=== PATIENT | male | born 1950 | race Caucasian/White ===

== ENCOUNTER 2020-08-11 13:58 | Inpatient (IN) | payer MEDICAID, MEDICARE ==
[~2020-08-11] VITALS: Ht 180.3 cm; Wt 96.3 kg
[2020-08-11] MEDS ORDERED: ASPIRIN 81 MG TABLET CHEW PO ONE (14:30)
[2020-08-11] MEDS ORDERED: SODIUM CHLORIDE FLUSH 10ML SYR IVF ONE (14:30)
[2020-08-11 14:51] LABS: BASOPHILS % (AUTO) 0 % (0-1); EOSINOPHILS % (AUTO) 4 % (1-7); LYMPHOCYTES % (AUTO) 8 % (22-44); MEAN CORPUSCULAR HEMOGLOBIN 30.6 pg (27.5-34.5); MEAN CORPUSCULAR HGB CONC 34.3 g/dL (33.2-36.2); MEAN PLATELET VOLUME 7.4 fL (7.4-10.4); MONOCYTES % (AUTO) 10 % (2-9); NEUTROPHILS % (AUTO) 79 % (42-75); PLATELET COUNT 178 x10^3/uL (130-400); RED BLOOD COUNT 4.17 x10^6/uL (4.38-5.82); RED CELL DISTRIBUTION WIDTH 13.9 % (9.4-14.8)
[2020-08-11] MEDS ORDERED: ASPIRIN 81 MG TABLET CHEW ONE (14:52)
[2020-08-11 15:01] LABS: TROPONIN I < 0.015 ng/mL (0.000-0.045)
[2020-08-11 15:46] LABS: ANION GAP 10 mmol/L (5-15); CHLORIDE 107 mmol/L (98-107); CREATININE 0.98 mg/dL (0.7-1.3)
[2020-08-11] MEDS ORDERED: AMPICILLIN/SULBACTAM 3 GM in SODIUM CHLORIDE 0.9% 100 ML IV ONE (16:00)
[2020-08-11] MEDS ORDERED: MAALOX/HYOSCYAMINE/LIDOCAINE 45 ML BTL PO ONE (16:30)
--- NOTE | 2020-08-11 16:30 | NUR ---
Code 250. Pt at outpt wound clinic for R leg wound that he's "had for 3 months and nobody can fix." Hx of DM. Pt taking Eliquis for hx of DVTs, denies hx of PEs. Pt reports significant SOB today at wound clinic, worse than normal. Pt's RA sat >92% but resp rate >30. Pt awake and alert, but poor historian.
--- NOTE | 2020-08-11 16:58 | NUR ---
Pt to imaging.
[2020-08-11 17:17] LABS: ALBUMIN 2.8 g/dL (3.4-5.0); BILIRUBIN, DIRECT 4.8 mg/dL (0.1-0.2)
[2020-08-11 17:19] LABS: BILIRUBIN,INDIRECT 1.1 mg/dL (0.0-2.0); BILIRUBIN,TOTAL 5.9 mg/dL (0.2-1.0); TOTAL PROTEIN 6.4 g/dL (6.4-8.2)
[2020-08-11] MEDS ORDERED: MAALOX/HYOSCYAMINE/LIDOCAINE 45 ML BTL ONE (17:42)
[2020-08-11] MEDS ORDERED: HYDROmorphone 2 MG/ML, 1ML ONE (17:42)
--- NOTE | 2020-08-11 17:48 | NUR ---
Multiple RNS at bedside working to obtain IV access since 1644 Addendum: 08/11/20 at 1754 by PAO Multiple RNS at bedside working to obtain IV access since 1614
[2020-08-11] MEDS ORDERED: HYDROmorphone 1 MG/ML, 1ML INJ IM ONE (18:00)
[2020-08-11] MEDS ORDERED: OMNIPAQUE 350 MG/ML, 100ML BOTTLE ONE (18:25)
[2020-08-11] MEDS ORDERED: SODIUM CHLORIDE 0.9% 1,000ML IVBOLUS ONE (19:00)
--- NOTE | 2020-08-11 19:08 | NUR ---
pt back in bed from walking to bathroom with steady gait. nadn with exception to breathing faster than normal. pt telling jokes to this nurse in happy mood. bed in low position, trails engaged. call light on lap tm
--- NOTE | 2020-08-11 19:08 | NUR ---
Fluids started as pt is being worked up for SOB sepsis versus CHF versus PE. Pt's BP noted to be trending down most recent 94/66 after abx. MD Pedroza who has assumed care notified of this and BNP, 500cc fluid bolus ordered and started. Pt ambulatory to bathroom with steady gait for UA. Bedside report to KRISTINA Huertas, to assume full care.
[2020-08-11] MEDS ORDERED: SULF1TAB23 PO (20:13)
[2020-08-11] MEDS ORDERED: SEMA0.25 INJ (20:13)
[2020-08-11] MEDS ORDERED: INSU100V13 INJ (20:13)
[2020-08-11] MEDS ORDERED: DOXY100C2 PO (20:13)
[2020-08-11] MEDS ORDERED: OLAN10VI2 PO (20:13)
[2020-08-11] MEDS ORDERED: HYDR-826 PO (20:13)
[2020-08-11] MEDS ORDERED: METF500T17 PO (20:13)
[2020-08-11] MEDS ORDERED: AMOX CLAV (20:13)
[2020-08-11] MEDS ORDERED: HYDR-3237 PO (20:13)
[2020-08-11] MEDS ORDERED: BUPR100T11 PO (20:13)
[2020-08-11] MEDS ORDERED: GLIP5TAB10 PO (20:15)
[2020-08-11] MEDS ORDERED: [UNRECOGNIZED DRUG - SUPPLY] (20:15)
[2020-08-11] MEDS ORDERED: RIVA20TA PO (20:15)
--- NOTE | 2020-08-11 20:21 | NUR ---
LATE ENTRY. BEDSIDE REPORT FROM LUZ ACEVEDO AT [facility]IFT [facility].
--- NOTE | 2020-08-11 20:58 | NUR ---
Patient is resting comfortably in bed. Bed in lowest, rails engaged, call light on lap. Vital Signs within normal limits. PT GIVEN ICE FOR DRY MOUTH. WCTM.
[2020-08-11] MEDS ORDERED: HEPARIN 5,000 UNITS/ML, 1ML SQ SCH (21:00)
[2020-08-11] MEDS ORDERED: DOCUSATE 100 MG CAPSULE PO PRN (21:00)
[2020-08-11] MEDS ORDERED: LIDODERM 5% PATCH TD PRN (21:25)
[2020-08-11] MEDS ORDERED: HYDROcodone/APAP 5/325 TABLET ONE (21:25)
[2020-08-11] MEDS ORDERED: OLANZAPINE 5 MG TABLET ONE (21:25)
[2020-08-11] MEDS ORDERED: HEPARIN 5,000 UNITS/ML, 1ML ONE (21:25)
[2020-08-11] MEDS ORDERED: MELATONIN 5 MG TABLET PO PRN (21:26)
[2020-08-11 21:28] LABS: TROPONIN I < 0.015 ng/mL (0.000-0.045)
[2020-08-11] MEDS: OLANZAPINE 5 MG TABLET PO SCH (21:28)
[2020-08-11] MEDS: HYDROcodone/APAP 5/325 TABLET PO SCH (21:29)
--- NOTE | 2020-08-11 22:05 | NUR ---
GAVE REPORT TO TAMI ACEVEDO.
[2020-08-11 22:36] VITALS: BP 125/73
[2020-08-12] MEDS: FUROSEMIDE 20 MG/2 ML IV SCH ×3 (01:19→16:36)
[2020-08-12 01:24] LABS: MICROSCOPIC INDICATED
[2020-08-12 01:56] VITALS: BP 128/73
[2020-08-12] MEDS: AMPICILLIN/SULBACTAM 3 GM in SODIUM CHLORIDE 0.9% 100 ML IV SCH ×3 (02:12→17:43)
[2020-08-12 03:15] LABS: BASOPHILS % (AUTO) 0 % (0-1); EOSINOPHILS % (AUTO) 7 % (1-7); LYMPHOCYTES % (AUTO) 11 % (22-44); MEAN CORPUSCULAR HEMOGLOBIN 30.7 pg (27.5-34.5); MEAN CORPUSCULAR HGB CONC 34.8 g/dL (33.2-36.2); MEAN PLATELET VOLUME 7.1 fL (7.4-10.4); MONOCYTES % (AUTO) 9 % (2-9); NEUTROPHILS % (AUTO) 72 % (42-75); PLATELET COUNT 159 x10^3/uL (130-400); RED BLOOD COUNT 4.04 x10^6/uL (4.38-5.82)
[2020-08-12 03:31] LABS: CHLORIDE 105 mmol/L (98-107); TROPONIN I < 0.015 ng/mL (0.000-0.045)
[2020-08-12 03:32] LABS: ALANINE AMINOTRANSFERASE 434 U/L (12-78); ALBUMIN 2.5 g/dL (3.4-5.0); ANION GAP 10 mmol/L (5-15); CALCIUM 8.3 mg/dL (8.5-10.1); CREATININE 0.73 mg/dL (0.7-1.3)
[2020-08-12 03:42] LABS: ALKALINE PHOSPHATASE 702 U/L (45-117); BILIRUBIN,TOTAL 5.8 mg/dL (0.2-1.0); TOTAL PROTEIN 6.2 g/dL (6.4-8.2)
[2020-08-12] MEDS: HYDROcodone/APAP 5/325 TABLET PO SCH ×4 (05:55→20:40)
[2020-08-12 07:02] VITALS: BP 113/71
[2020-08-12] MEDS ORDERED: GADOTERATE 10 MMOL/20ML SYR ONE (08:51)
[2020-08-12] MEDS: RIVAROXABAN 20 MG TABLET PO SCH (10:43)
[2020-08-12] MEDS: BUPROPION 100 MG TABLET PO SCH (10:50)
[2020-08-12 12:32] VITALS: BP 107/68
[2020-08-12 19:34] VITALS: BP 118/73
[2020-08-12] MEDS: OLANZAPINE 5 MG TABLET PO SCH (20:40)
[2020-08-13 01:27] VITALS: BP 119/75
[2020-08-13] MEDS: AMPICILLIN/SULBACTAM 3 GM in SODIUM CHLORIDE 0.9% 100 ML IV SCH ×2 (02:47→10:19)
[2020-08-13] MEDS: HYDROcodone/APAP 5/325 TABLET PO SCH ×2 (04:42→10:19)
[2020-08-13] MEDS: FUROSEMIDE 20 MG/2 ML IV SCH (06:27)
[2020-08-13 07:09] VITALS: BP 147/83
[2020-08-13] MEDS ORDERED: AMOX1TAB64 PO (08:49)
[2020-08-13] MEDS ORDERED: FURO-93 PO (08:50)
[2020-08-13] MEDS ORDERED: POTA20TA6 PO (08:51)
[2020-08-13 09:19] LABS: ANION GAP 12 mmol/L (5-15); CALCIUM 9.2 mg/dL (8.5-10.1); CHLORIDE 104 mmol/L (98-107); CREATININE 0.79 mg/dL (0.7-1.3)
[2020-08-13 09:20] LABS: ALANINE AMINOTRANSFERASE 368 U/L (12-78); ALBUMIN 2.8 g/dL (3.4-5.0)
[2020-08-13 09:22] LABS: ALKALINE PHOSPHATASE 864 U/L (45-117); BILIRUBIN,TOTAL 2.8 mg/dL (0.2-1.0); TOTAL PROTEIN 7.1 g/dL (6.4-8.2)
[2020-08-13] MEDS: RIVAROXABAN 20 MG TABLET PO SCH (09:25)
[2020-08-13] MEDS: OLANZAPINE 5 MG TABLET PO SCH (09:25)
[2020-08-13] MEDS: BUPROPION 100 MG TABLET PO SCH (09:25)
== END 2020-08-13 12:20 | disposition home or self-care (01) | DRG 602 ==
LOC: ED 21:22 → EDIP 21:37 → 5SO 22:30 → DCLOUNGE 08-13 12:14
PROVIDERS: ADMIT Internal Medicine; ATTEND Hospitalist
DX: L03.115 Cellulitis of right lower limb (principal); J96.01 Acute respiratory failure with hypoxia; K85.90 Acute pancreatitis without necrosis or infection, unspecified; I50.31 Acute diastolic (congestive) heart failure; F33.9 Major depressive disorder, recurrent, unspecified; J81.1 Chronic pulmonary edema; J90 Pleural effusion, not elsewhere classified; J98.11 Atelectasis; K81.0 Acute cholecystitis; K76.1 Chronic passive congestion of liver; D64.9 Anemia, unspecified; E11.65 Type 2 diabetes mellitus with hyperglycemia; F41.9 Anxiety disorder, unspecified; L03.116 Cellulitis of left lower limb; Z86.718 Personal history of other venous thrombosis and embolism; Z79.01 Long term (current) use of anticoagulants; Z91.5 Personal history of self-harm
CPT/HCPCS: 36415; 71045; 71275; 74177; 80048; 80053; 80074; 80076; 81001; 83605; 83690; 83735; 83880; 84100; 84443; 84484; 85025; 85379; 87040; 93005; 93306; 93356; 96374; G0378; J0295; J1170; J1644; Q9967; A9575; J1940; J7030; Q0177

== ENCOUNTER 2020-08-16 00:16 | Emergency (ER) | payer MEDICAID ==
[~2020-08-16] VITALS: Ht 180.3 cm; Wt 93.2 kg
[~2020-08-16 00:16] MED LIST: AMOX CLAV; AMOX1TAB64 PO; BUPR100T11 PO; DOXY100C2 PO; FURO-93 PO; GLIP5TAB10 PO; HYDR-3237 PO; HYDR-826 PO; INSU100V13 INJ; METF500T17 PO; OLAN10VI2 PO; POTA20TA6 PO; RIVA20TA PO; SEMA0.25 INJ; SULF1TAB23 PO; [UNRECOGNIZED DRUG - SUPPLY]
[2020-08-16] MEDS ORDERED: ACETAMINOPHEN 500 MG TABLET PO ONE (00:30)
[2020-08-16] MEDS ORDERED: ACETAMINOPHEN 500 MG TABLET ONE (00:32)
[2020-08-16 00:42] LABS: BASOPHILS % (AUTO) 1 % (0-1); EOSINOPHILS % (AUTO) 6 % (1-7); LYMPHOCYTES % (AUTO) 17 % (22-44); MEAN CORPUSCULAR HEMOGLOBIN 30.4 pg (27.5-34.5); MEAN CORPUSCULAR HGB CONC 34.4 g/dL (33.2-36.2); MEAN PLATELET VOLUME 7.3 fL (7.4-10.4); MONOCYTES % (AUTO) 13 % (2-9); NEUTROPHILS % (AUTO) 64 % (42-75); PLATELET COUNT 247 x10^3/uL (130-400); RED BLOOD COUNT 4.41 x10^6/uL (4.38-5.82); RED CELL DISTRIBUTION WIDTH 14.6 % (9.4-14.8)
[2020-08-16 00:55] LABS: ALBUMIN 2.8 g/dL (3.4-5.0); ANION GAP 10 mmol/L (5-15); CALCIUM 9.6 mg/dL (8.5-10.1); CHLORIDE 102 mmol/L (98-107); CREATININE 0.92 mg/dL (0.7-1.3)
[2020-08-16 02:47] VITALS: BP 142/82
== END 2020-08-16 02:49 | disposition home or self-care (01) ==
LOC: ED 01:30
DX: M79.661 Pain in right lower leg (principal); L03.115 Cellulitis of right lower limb; E11.9 Type 2 diabetes mellitus without complications; Z86.718 Personal history of other venous thrombosis and embolism
CPT/HCPCS: 36415; 80048; 82040; 85025; 86140; 99284

== ENCOUNTER 2020-08-18 23:28 | Emergency (ER) | payer MEDICAID ==
[2020-08-18 23:33] VITALS: BP 131/60
--- NOTE | 2020-08-18 23:42 | NUR ---
BI LAT FOOT PAIN WAS SEEN HERE A WEEK AGO FOR SAME
[2020-08-18] MEDS ORDERED: HYDROcodone/APAP 5/325 TABLET ONE (23:49)
[2020-08-19] MEDS ORDERED: HYDROcodone/APAP 5/325 TABLET PO ONE
[2020-08-19 00:13] LABS: BASOPHILS % (AUTO) 0 % (0-1); EOSINOPHILS % (AUTO) 0 % (1-7); LYMPHOCYTES % (AUTO) 20 % (22-44); MEAN CORPUSCULAR HEMOGLOBIN 30.3 pg (27.5-34.5); MEAN CORPUSCULAR HGB CONC 34.1 g/dL (33.2-36.2); MEAN PLATELET VOLUME 7.4 fL (7.4-10.4); MONOCYTES % (AUTO) 13 % (2-9); NEUTROPHILS % (AUTO) 67 % (42-75); PLATELET COUNT 310 x10^3/uL (130-400); RED BLOOD COUNT 4.08 x10^6/uL (4.38-5.82); RED CELL DISTRIBUTION WIDTH 14.2 % (9.4-14.8)
[2020-08-19 00:14] LABS: HCT (SEDRATE) 36.3 % (39.2-51.8)
[2020-08-19 00:20] LABS: ALBUMIN 2.8 g/dL (3.4-5.0); ANION GAP 7 mmol/L (5-15); CHLORIDE 103 mmol/L (98-107); CREATININE 0.95 mg/dL (0.7-1.3)
--- NOTE | 2020-08-19 00:50 | NUR ---
REPORT FROM KRISTINA GARY
[2020-08-19] MEDS ORDERED: VANCOMYCIN PER PHARMACY MC PRN (02:00)
[2020-08-19] MEDS ORDERED: CEFTRIAXONE 1,000 MG in DEXTROSE 5% 50 ML IVPB ONE (02:00)
== END 2020-08-19 02:11 | disposition home or self-care (01) ==
LOC: ED 23:39
DX: M79.662 Pain in left lower leg (principal); M79.661 Pain in right lower leg; E11.40 Type 2 diabetes mellitus with diabetic neuropathy, unspecified; Z86.718 Personal history of other venous thrombosis and embolism
CPT/HCPCS: 36415; 80048; 82040; 83605; 85025; 85651; 86140; 99283

== ENCOUNTER 2020-08-25 01:01 | Emergency (ER) | payer MEDICARE, MEDICAID ==
[~2020-08-25] VITALS: Ht 180.3 cm; Wt 95.0 kg
[2020-08-25 01:02] VITALS: BP 132/77
--- NOTE | 2020-08-25 01:43 | NUR ---
PT PRESENTS TO ER FOR RIGHT ANKLE PAIN, PT STATES HE HAS HAD A WOUND ON IT FOR 4 MONTHS, PTS RIGHT ANKLE IS RED, WARM TO THE TOUCH AND VERY DRY AND FLAKEY, PT STATES HE HAS AN APPOINTMENT AT [facility] TODAY AT 9AM BUT COULDNT TAKE THE PAIN AND WANTED TO CHECK INTO THE ER FOR IT, PT IS A DIABETIC AND STATES HE IS COMPLIANT WITH TREATMENT
[2020-08-25] MEDS ORDERED: HYDROcodone/APAP 5/325 TABLET PO ONE (02:30)
[2020-08-25] MEDS ORDERED: HYDROcodone/APAP 5/325 TABLET ONE (02:35)
--- NOTE | 2020-08-25 02:46 | NUR ---
PT GIVEN ORAL PAIN MEDICATION AND TOLD TO KEEP HIS WOUND APPOINTMENT IN THE MORNING, PT AGREES TO POC, PT STATED HE WAS GOING TO USE [facility] TO ARRANGE FOR TRANSPORTATION
== END 2020-08-25 02:58 | disposition home or self-care (01) ==
LOC: ED 02:30
DX: M79.661 Pain in right lower leg (principal); E11.40 Type 2 diabetes mellitus with diabetic neuropathy, unspecified; T81.89XA Other complications of procedures, not elsewhere classified, initial encounter; Z86.718 Personal history of other venous thrombosis and embolism
CPT/HCPCS: 99283

== ENCOUNTER 2020-08-25 08:42 | Outpatient (CLI) | payer MEDICARE, MEDICAID | END 2020-08-25 23:59 | disposition home or self-care (01) | LOC: WOUND 08:42 | PROVIDERS: ATTEND Internal Medicine | DX: E11.621 Type 2 diabetes mellitus with foot ulcer (principal); L97.411 Non-pressure chronic ulcer of right heel and midfoot limited to breakdown of skin; L97.511 Non-pressure chronic ulcer of other part of right foot limited to breakdown of skin; E11.622 Type 2 diabetes mellitus with other skin ulcer; L97.311 Non-pressure chronic ulcer of right ankle limited to breakdown of skin; L97.212 Non-pressure chronic ulcer of right calf with fat layer exposed; S91.001A Unspecified open wound, right ankle, initial encounter; L84 Corns and callosities; I87.2 Venous insufficiency (chronic) (peripheral); E11.40 Type 2 diabetes mellitus with diabetic neuropathy, unspecified; F31.9 Bipolar disorder, unspecified; G89.29 Other chronic pain; K76.1 Chronic passive congestion of liver; I50.31 Acute diastolic (congestive) heart failure; F41.9 Anxiety disorder, unspecified; J81.1 Chronic pulmonary edema; Z79.01 Long term (current) use of anticoagulants; Z79.4 Long term (current) use of insulin; Z87.891 Personal history of nicotine dependence; Z86.718 Personal history of other venous thrombosis and embolism; X58.XXXA Exposure to other specified factors, initial encounter; Y93.89 Activity, other specified; Y92.89 Other specified places as the place of occurrence of the external cause; Y99.8 Other external cause status | CPT/HCPCS: 97597; 97598; G0463; 99283 ==

== ENCOUNTER 2020-09-08 10:01 | Outpatient (CLI) | payer MEDICARE, MEDICAID | END 2020-09-08 23:59 | disposition home or self-care (01) | LOC: WOUND 10:01 | PROVIDERS: ATTEND Internal Medicine | DX: E11.621 Type 2 diabetes mellitus with foot ulcer (principal); L97.411 Non-pressure chronic ulcer of right heel and midfoot limited to breakdown of skin; L97.511 Non-pressure chronic ulcer of other part of right foot limited to breakdown of skin; E11.622 Type 2 diabetes mellitus with other skin ulcer; L97.311 Non-pressure chronic ulcer of right ankle limited to breakdown of skin; L97.212 Non-pressure chronic ulcer of right calf with fat layer exposed; S91.001D Unspecified open wound, right ankle, subsequent encounter; E11.40 Type 2 diabetes mellitus with diabetic neuropathy, unspecified; G89.29 Other chronic pain; F41.9 Anxiety disorder, unspecified; K76.1 Chronic passive congestion of liver; I50.31 Acute diastolic (congestive) heart failure; J81.1 Chronic pulmonary edema; L84 Corns and callosities; I87.2 Venous insufficiency (chronic) (peripheral); Z86.718 Personal history of other venous thrombosis and embolism; Z79.4 Long term (current) use of insulin; F31.9 Bipolar disorder, unspecified; Z87.891 Personal history of nicotine dependence; Z79.01 Long term (current) use of anticoagulants; X58.XXXD Exposure to other specified factors, subsequent encounter | CPT/HCPCS: 97597 ==

== ENCOUNTER → 2020-09-08 | Outpatient (CLI) | payer MEDICARE, MEDICAID | END | disposition home or self-care (01) | LOC: RAD 10:45 | PROVIDERS: ATTEND Nurse Practitioner Family | DX: R74.8 Abnormal levels of other serum enzymes (principal) | CPT/HCPCS: 76705 ==

== ENCOUNTER 2020-09-22 00:45 | Emergency (ER) | payer MEDICARE, MEDICAID ==
[~2020-09-22] VITALS: Ht 180.3 cm; Wt 97.1 kg
--- NOTE | 2020-09-22 01:56 | NUR ---
PEMA COLEMAN AWARE PATIENT FSBS [id number]
--- NOTE | 2020-09-22 01:58 | NUR ---
PT TO ROOM AT THIS TIME.
[2020-09-22] MEDS ORDERED: SODIUM CHLORIDE 0.9% 1,000ML IVBOLUS ONE (02:00)
--- NOTE | 2020-09-22 02:22 | NUR ---
PT PRESENTS TO THE ED WITH BILATERAL FOOT PAIN, PT STATES MORE PAIN IN RIGHT FOOT OVER LEFT, PT HAS A DIABETIC WOUND ON RIGHT ANKLE. 20 G IV TO RIGHT FOREARM WITH IVF RUNNING, BLOOD AND UA SAMPLE COLLECTED. PT RESTING ON GURNEY, PLACED ON CONTINUOUS MONITORING.
[2020-09-22 02:39] LABS: BASOPHILS % (AUTO) 1 % (0-1); EOSINOPHILS % (AUTO) 12 % (1-7); LYMPHOCYTES % (AUTO) 34 % (22-44); MEAN CORPUSCULAR HEMOGLOBIN 30.4 pg (27.5-34.5); MEAN CORPUSCULAR HGB CONC 34.6 g/dL (33.2-36.2); MEAN PLATELET VOLUME 7.1 fL (7.4-10.4); MONOCYTES % (AUTO) 9 % (2-9); NEUTROPHILS % (AUTO) 45 % (42-75); PLATELET COUNT 193 x10^3/uL (130-400); RED BLOOD COUNT 4.59 x10^6/uL (4.38-5.82); RED CELL DISTRIBUTION WIDTH 14.1 % (9.4-14.8)
[2020-09-22 02:41] LABS: MICROSCOPIC NOT IND
[2020-09-22 02:49] LABS: ALANINE AMINOTRANSFERASE 55 U/L (12-78); ALBUMIN 3.6 g/dL (3.4-5.0); ANION GAP 8 mmol/L (5-15); CALCIUM 8.9 mg/dL (8.5-10.1); CHLORIDE 104 mmol/L (98-107); CREATININE 1.09 mg/dL (0.7-1.3)
[2020-09-22 02:51] LABS: ALKALINE PHOSPHATASE 157 U/L (45-117); BILIRUBIN,TOTAL 0.5 mg/dL (0.2-1.0)
--- NOTE | 2020-09-22 03:25 | NUR ---
pt resting on gurney, denies needs at this time.
--- NOTE | 2020-09-22 04:07 | NUR ---
Patient given discharge instructions and they have confirmed that they understand the instructions. Patient ambulatory with steady gait.
[2020-09-22 04:08] VITALS: BP 111/76
== END 2020-09-22 04:17 | disposition home or self-care (01) ==
LOC: ED 04:07
DX: G89.29 Other chronic pain (principal); M79.671 Pain in right foot; M79.672 Pain in left foot; E11.40 Type 2 diabetes mellitus with diabetic neuropathy, unspecified; E11.65 Type 2 diabetes mellitus with hyperglycemia; Z86.718 Personal history of other venous thrombosis and embolism
CPT/HCPCS: 36415; 80053; 81003; 82962; 85025; 96360; 99283; J7030

== ENCOUNTER → 2020-09-22 | Outpatient (CLI) | payer MEDICARE, MEDICAID | END | disposition home or self-care (01) | LOC: WOUND 08:44 | PROVIDERS: ATTEND Internal Medicine | DX: E11.621 Type 2 diabetes mellitus with foot ulcer (principal); L97.411 Non-pressure chronic ulcer of right heel and midfoot limited to breakdown of skin; L97.511 Non-pressure chronic ulcer of other part of right foot limited to breakdown of skin; E11.622 Type 2 diabetes mellitus with other skin ulcer; L97.311 Non-pressure chronic ulcer of right ankle limited to breakdown of skin; L97.212 Non-pressure chronic ulcer of right calf with fat layer exposed; S91.001D Unspecified open wound, right ankle, subsequent encounter; E11.40 Type 2 diabetes mellitus with diabetic neuropathy, unspecified; G89.29 Other chronic pain; F41.9 Anxiety disorder, unspecified; K76.1 Chronic passive congestion of liver; I50.31 Acute diastolic (congestive) heart failure; F31.9 Bipolar disorder, unspecified; J81.1 Chronic pulmonary edema; L84 Corns and callosities; I87.2 Venous insufficiency (chronic) (peripheral); Z86.718 Personal history of other venous thrombosis and embolism; Z79.4 Long term (current) use of insulin; Z87.891 Personal history of nicotine dependence; Z79.01 Long term (current) use of anticoagulants; X58.XXXD Exposure to other specified factors, subsequent encounter | CPT/HCPCS: 97597 ==

== ENCOUNTER 2020-09-27 15:44 | Emergency (ER) | payer MEDICARE, MEDICAID ==
[~2020-09-27] VITALS: Ht 180.3 cm; Wt 96.0 kg
[2020-09-27 16:09] VITALS: BP 100/73
[2020-09-27 17:01] LABS: BASOPHILS % (AUTO) 0 % (0-1); EOSINOPHILS % (AUTO) 5 % (1-7); LYMPHOCYTES % (AUTO) 18 % (22-44); MEAN CORPUSCULAR HEMOGLOBIN 30.4 pg (27.5-34.5); MEAN CORPUSCULAR HGB CONC 34.9 g/dL (33.2-36.2); MEAN PLATELET VOLUME 6.8 fL (7.4-10.4); MONOCYTES % (AUTO) 11 % (2-9); NEUTROPHILS % (AUTO) 65 % (42-75); PLATELET COUNT 211 x10^3/uL (130-400); RED CELL DISTRIBUTION WIDTH 14.4 % (9.4-14.8)
[2020-09-27 17:14] LABS: ALANINE AMINOTRANSFERASE 49 U/L (12-78); ALBUMIN 3.7 g/dL (3.4-5.0); ANION GAP 11 mmol/L (5-15); CALCIUM 9.5 mg/dL (8.5-10.1); CHLORIDE 105 mmol/L (98-107); CREATININE 0.99 mg/dL (0.7-1.3)
[2020-09-27 17:22] LABS: ALKALINE PHOSPHATASE 141 U/L (45-117); BILIRUBIN,TOTAL 0.6 mg/dL (0.2-1.0); TOTAL PROTEIN 7.1 g/dL (6.4-8.2)
[2020-09-27] MEDS ORDERED: HYDROcodone/APAP 5/325 TABLET ONE (22:17)
[2020-09-27] MEDS ORDERED: HYDROcodone/APAP 5/325 TABLET PO ONE (22:30)
--- NOTE | 2020-09-27 22:59 | NUR ---
Patient/Caregiver given discharge instructions and they have confirmed that they understand the instructions. Patient ambulatory with steady gait. NAD, all questions answered appropriately, denies additional needs at this time. No personal belongings left in room after discharge.
== END 2020-09-27 23:08 | disposition home or self-care (01) ==
LOC: ED 23:00
DX: L03.115 Cellulitis of right lower limb (principal); G89.29 Other chronic pain; M79.671 Pain in right foot; M79.672 Pain in left foot; E11.65 Type 2 diabetes mellitus with hyperglycemia; L97.509 Non-pressure chronic ulcer of other part of unspecified foot with unspecified severity; Z86.718 Personal history of other venous thrombosis and embolism
CPT/HCPCS: 36415; 80053; 85025; 85651; 86140; 99284

== ENCOUNTER → 2020-10-01 | Outpatient (CLI) | payer MEDICARE, MEDICAID | END | disposition home or self-care (01) | LOC: WOUND 07:41 | PROVIDERS: ATTEND Internal Medicine | DX: E11.621 Type 2 diabetes mellitus with foot ulcer (principal); L97.411 Non-pressure chronic ulcer of right heel and midfoot limited to breakdown of skin; L97.511 Non-pressure chronic ulcer of other part of right foot limited to breakdown of skin; E11.622 Type 2 diabetes mellitus with other skin ulcer; L97.311 Non-pressure chronic ulcer of right ankle limited to breakdown of skin; L97.212 Non-pressure chronic ulcer of right calf with fat layer exposed; L97.811 Non-pressure chronic ulcer of other part of right lower leg limited to breakdown of skin; S91.001D Unspecified open wound, right ankle, subsequent encounter; E11.40 Type 2 diabetes mellitus with diabetic neuropathy, unspecified; G89.29 Other chronic pain; F41.9 Anxiety disorder, unspecified; K76.1 Chronic passive congestion of liver; I50.31 Acute diastolic (congestive) heart failure; F31.9 Bipolar disorder, unspecified; J81.1 Chronic pulmonary edema; L84 Corns and callosities; I87.2 Venous insufficiency (chronic) (peripheral); Z86.718 Personal history of other venous thrombosis and embolism; Z79.4 Long term (current) use of insulin; Z87.891 Personal history of nicotine dependence; Z79.01 Long term (current) use of anticoagulants; X58.XXXD Exposure to other specified factors, subsequent encounter | CPT/HCPCS: 97597 ==

== ENCOUNTER 2020-10-08 08:17 | Outpatient (CLI) | payer MEDICARE, MEDICAID | END 2020-10-08 23:59 | disposition home or self-care (01) | LOC: WOUND 08:17 | PROVIDERS: ATTEND Internal Medicine | DX: E11.621 Type 2 diabetes mellitus with foot ulcer (principal); L97.411 Non-pressure chronic ulcer of right heel and midfoot limited to breakdown of skin; L97.511 Non-pressure chronic ulcer of other part of right foot limited to breakdown of skin; E11.622 Type 2 diabetes mellitus with other skin ulcer; L97.311 Non-pressure chronic ulcer of right ankle limited to breakdown of skin; L97.212 Non-pressure chronic ulcer of right calf with fat layer exposed; L97.811 Non-pressure chronic ulcer of other part of right lower leg limited to breakdown of skin; S91.001D Unspecified open wound, right ankle, subsequent encounter; E11.40 Type 2 diabetes mellitus with diabetic neuropathy, unspecified; G89.29 Other chronic pain; F41.9 Anxiety disorder, unspecified; K76.1 Chronic passive congestion of liver; I87.8 Other specified disorders of veins; I50.31 Acute diastolic (congestive) heart failure; F31.9 Bipolar disorder, unspecified; J81.1 Chronic pulmonary edema; L84 Corns and callosities; I87.2 Venous insufficiency (chronic) (peripheral); Z86.718 Personal history of other venous thrombosis and embolism; Z79.4 Long term (current) use of insulin; Z87.891 Personal history of nicotine dependence; Z79.01 Long term (current) use of anticoagulants; X58.XXXD Exposure to other specified factors, subsequent encounter | CPT/HCPCS: 97597 ==

== ENCOUNTER 2020-10-15 08:42 | Outpatient (CLI) | payer MEDICARE, MEDICAID ==
[~2020-10-15 08:42] MED LIST changes: -DOXY100C2 PO; +DOXY100C5 PO; +POTA-143 PO; -POTA20TA6 PO
== END 2020-10-15 23:59 | disposition home or self-care (01) ==
LOC: WOUND 08:42
PROVIDERS: ATTEND Internal Medicine
DX: E11.621 Type 2 diabetes mellitus with foot ulcer (principal); L97.411 Non-pressure chronic ulcer of right heel and midfoot limited to breakdown of skin; L97.511 Non-pressure chronic ulcer of other part of right foot limited to breakdown of skin; E11.622 Type 2 diabetes mellitus with other skin ulcer; L97.311 Non-pressure chronic ulcer of right ankle limited to breakdown of skin; L97.212 Non-pressure chronic ulcer of right calf with fat layer exposed; L97.811 Non-pressure chronic ulcer of other part of right lower leg limited to breakdown of skin; S91.001D Unspecified open wound, right ankle, subsequent encounter; E11.40 Type 2 diabetes mellitus with diabetic neuropathy, unspecified; G89.29 Other chronic pain; F41.9 Anxiety disorder, unspecified; K76.1 Chronic passive congestion of liver; I50.31 Acute diastolic (congestive) heart failure; F31.9 Bipolar disorder, unspecified; J81.1 Chronic pulmonary edema; L84 Corns and callosities; I87.2 Venous insufficiency (chronic) (peripheral); Z86.718 Personal history of other venous thrombosis and embolism; Z79.4 Long term (current) use of insulin; Z87.891 Personal history of nicotine dependence; Z79.01 Long term (current) use of anticoagulants; X58.XXXD Exposure to other specified factors, subsequent encounter
CPT/HCPCS: 97597; 97598